=== PATIENT | male | born 1965 | race African-American/Black ===

== ENCOUNTER 2019-02-15 03:39 | Inpatient (IN) | payer OTHER ==
[~2019-02-15] VITALS: Ht 193 cm; Wt 126.8 kg
[2019-02-15 04:05] LABS: BASO % 1 % (0-3); EOS % 0 % (0-3); HEMATOCRIT 42.5 % (39.0-53.0); LYMPH # 0.9 x10^3/uL (1.0-4.8); LYMPH % 24 % (24-48); MEAN CORPUSCULAR HEMOGLOBIN 32 pg (25-35); MEAN CORPUSCULAR HGB CONC 35 g/dL (31-37); MEAN CORPUSCULAR VOLUME 91 fL (79-100); MONO # 0.3 x10^3/uL (0.0-1.1); MONO % 9 % (0-9); NEUT # 2.5 x10^3/uL (1.8-7.7); NEUT % 66 % (31-73); PLATELET COUNT 74 x10^3/uL (140-400); RED BLOOD COUNT 4.65 x10^6/uL (4.30-5.70); RED CELL DISTRIBUTION WIDTH 14.2 % (11.5-14.5); WHITE BLOOD COUNT 3.7 x10^3/uL (4.0-11.0)
[2019-02-15 04:13] LABS: CALCIUM 9.6 mg/dL (8.5-10.1); CREATININE 0.9 mg/dL (0.7-1.3); GFR 88.6; POTASSIUM 3.3 mmol/L (3.5-5.1)
[2019-02-15 04:16] LABS: PROTHROMBIN TIME PATIENT 11.8 SEC (11.7-14.0)
[2019-02-15 04:19] LABS: ALBUMIN 4.1 g/dL (3.4-5.0); TOTAL BILIRUBIN 0.9 mg/dL (0.2-1.0); TOTAL PROTEIN 8.4 g/dL (6.4-8.2)
[2019-02-15] MEDS ORDERED: CONTRAST GIVEN. MC PRN (04:30)
[2019-02-15] MEDS ORDERED: fentaNYL PF VIAL 100 MCG/2 ML VIAL IV ONE (04:30)
[2019-02-15] MEDS ORDERED: IOHEXOL 350 MG/ML 100 ML VIAL. IV ONE (05:00)
--- NOTE | 2019-02-15 05:18 | RAD ---
Examination: CT angiography chest abdomen pelvis without and with IV contrast HISTORY: History of abdominal pain, chest pain COMPARISON: None available TECHNIQUE: Axial CT angiographic images of the chest abdomen pelvis were performed with without and with IV contrast. Coronal and sagittal 3-D MIP reformats are performed. Exposure: One or more of the following individualized dose reduction techniques were utilized for this examination: 1. Automated exposure control 2. Adjustment of the mA and/or kV according to patient size 3. Use of iterative reconstruction technique FINDINGS: The visualized thyroid gland grossly appears unremarkable. The central airways are patent. The caliber of the aorta grossly appears unremarkable. No evidence of aortic dissection identified. Mild aortic atherosclerotic calcifications. The lungs are clear. No evidence of free air identified in the abdomen Decreased attenuation noted in the liver likely hepatic steatosis. The spleen, adrenals grossly appears unremarkable. The gallbladder is mildly distended. The stomach is mildly distended. There is moderate intermediate fat stranding identified about the pancreatic head and second part of the duodenum could be pancreatitis or duodenitis or peptic ulcer disease. There is a 1.2 cm hypodensity identified in the head of the pancreas. The small bowel is nondilated. Feces and gas noted in the colon. The appendix is normal The bilateral kidneys enhance symmetrically. Urinary bladder is mildly distended. Faint hypodensity identified in the L4 vertebral body anteriorly probably focal osseous demineralization and less likely lytic lesion. IMPRESSION: 1. No evidence of aortic dissection 2. Moderate inflammatory fat stranding identified about the pancreatic head and in the second part of the duodenum could be pancreatitis or duodenitis or peptic ulcer disease. 1.2 cm hypodensity identified in the head of the pancreas. Recommend follow-up MRI abdomen with MRCP for further evaluation. 3.Faint hypodensity identified in the L4 vertebral body anteriorly probably focal osseous demineralization and less likely lytic lesion. Follow-up bone scan can be considered. Electronically signed by: Khurram Baker MD (02/15/2019 5:15 AM) [facility]
[2019-02-15 05:26] LABS: BILIRUBIN,URINE NEGATIVE (NEG); CLARITY,URINE CLEAR; COLOR,URINE YELLOW; NITRITE,URINE NEGATIVE (NEG); PROTEIN,URINE NEGATIVE (NEG-TRACE); UROBILINOGEN,URINE 0.2 mg/dL (0.2 mg/dL)
[2019-02-15 05:30] LABS: BACTERIA,URINE 0 /HPF (0-FEW); SQUAMOUS EPITHELIAL CELL,UR OCC /LPF; WBC,URINE OCC /HPF (0-4)
--- NOTE | 2019-02-15 05:34 | PHYS DOC ---
Adult General Chief Complaint Chief Complaint: CHEST PAIN HPI HPI Patient is a 54 year old female presenting with upper abdominal pain and lower chest pain. He says the pain has been migrating from the chest to the abdomen and back to the chest throughout the day today not clearly exertional he has thrown up a couple times he has had increased sinus congestion was coughing try to take some [facility] but threw that up promptly. Pain is deep and sharp and cramping as well. Has never had pain like this before denies any recent trauma Dose of report a history sometime esophageal surgery it sounds like maybe mark fundoplication? awhile back. occasional etoh but not daily or heavy no known hx of gallstones Review of Systems Review of Systems Constitutional: Denies fever or chills [] Eyes: Denies change in visual acuity, redness, or eye pain [] HENT: Denies nasal congestion or sore throat [] Respiratory: Denies cough or shortness of breath [] Cardiovascular: No additional information not addressed in HPI [] GI: Denies abdominal pain, nausea, vomiting, bloody stools or diarrhea [] : Denies dysuria or hematuria [] Musculoskeletal: Denies back pain or joint pain [] Integument: Denies rash or skin lesions [] Neurologic: Denies headache, focal weakness or sensory changes [] Endocrine: Denies polyuria or polydipsia [] All other systems were reviewed and found to be within normal limits, except as documented in this note. Current Medications Current Medications Current Medications Medications (Trade) Dose Ordered Sig/Suzy Start Time Stop Time Status Last Admin Dose Admin Fentanyl Citrate (Fentanyl 2ml Vial) 50 mcg 1X ONCE 02/15/19 04:30 02/15/19 04:31 DC 02/15/19 04:16 50 MCG Info (CONTRAST GIVEN -- Rx MONITORING) 1 each PRN DAILY PRN 02/15/19 04:30 02/17/19 04:29 Iohexol (Omnipaque 350 Mg/ml) 100 ml 1X ONCE 02/15/19 05:00 02/15/19 05:01 DC 02/15/19 04:55 100 ML Allergies Allergies Allergies Coded Allergies Type Severity Reaction Last Updated Verified pollen extracts Allergy Intermediate SEASONAL ALLERGIES 02/15/19 Yes Physical Exam Physical Exam Constitutional: Well developed, well nourished, appears uncomfortable. HENT: Normocephalic, atraumatic, bilateral external ears normal, oropharynx moist, no oral exudates, nose normal. [] Eyes: PERRLA, EOMI, conjunctiva normal, no discharge. [] Neck: Normal range of motion, no tenderness, supple, no stridor. [] Cardiovascular:Heart rate regular rhythm, no murmur [] Lungs & Thorax: Bilateral breath sounds clear to auscultation [] Abdomen: Bowel sounds normal, soft, epigastric without rebound or guarding tenderness, no masses, no pulsatile masses. [] Skin: Warm, dry, no erythema, no rash. [] Back: No tenderness, no CVA tenderness. [] Extremities: No tenderness, no cyanosis, no clubbing, ROM intact, no edema. [] Neurologic: Alert and oriented X 3, normal motor function, normal sensory function, no focal deficits noted. [] Psychologic: Affect normal, judgement normal, mood normal. [] Current Patient Data Vital Signs Vital Signs Date Time Temp Pulse Resp B/P (MAP) Pulse Ox O2 Delivery O2 Flow Rate FiO2 02/15/19 04:16 16 100 Room Air Lab Values Laboratory Tests Test 02/15/19 03:43 White Blood Count 3.7 x10^3/uL (4.0-11.0) L Red Blood Count 4.65 x10^6/uL (4.30-5.70) Hemoglobin 15.0 g/dL (13.0-17.5) Hematocrit 42.5 % (39.0-53.0) Mean Corpuscular Volume 91 fL (79-100) Mean Corpuscular Hemoglobin 32 pg (25-35) Mean Corpuscular Hemoglobin Concent 35 g/dL (31-37) Red Cell Distribution Width 14.2 % (11.5-14.5) Platelet Count 74 x10^3/uL (140-400) L Neutrophils (%) (Auto) 66 % (31-73) Lymphocytes (%) (Auto) 24 % (24-48) Monocytes (%) (Auto) 9 % (0-9) Eosinophils (%) (Auto) 0 % (0-3) Basophils (%) (Auto) 1 % (0-3) Neutrophils # (Auto) 2.5 x10^3/uL (1.8-7.7) Lymphocytes # (Auto) 0.9 x10^3/uL (1.0-4.8) L Monocytes # (Auto) 0.3 x10^3/uL (0.0-1.1) Eosinophils # (Auto) 0.0 x10^3/uL (0.0-0.7) Basophils # (Auto) 0.0 x10^3/uL (0.0-0.2) Prothrombin Time 11.8 SEC (11.7-14.0) Prothrombin Time INR 0.9 (0.8-1.1) Sodium Level 134 mmol/L (136-145) L Potassium Level 3.3 mmol/L (3.5-5.1) L Chloride Level 97 mmol/L (98-107) L Carbon Dioxide Level 24 mmol/L (21-32) Anion Gap 13 (6-14) Blood Urea Nitrogen 9 mg/dL (8-26) Creatinine 0.9 mg/dL (0.7-1.3) Estimated GFR (Cockcroft-Gault) 88.6 BUN/Creatinine Ratio 10 (6-20) Glucose Level 117 mg/dL (70-99) H Calcium Level 9.6 mg/dL (8.5-10.1) Total Bilirubin 0.9 mg/dL (0.2-1.0) Aspartate Amino Transferase (AST) 49 U/L (15-37) H Alanine Aminotransferase (ALT) 41 U/L (16-63) Alkaline Phosphatase 105 U/L (46-116) Troponin I Quantitative < 0.017 ng/mL (0.000-0.055) Total Protein 8.4 g/dL (6.4-8.2) H Albumin 4.1 g/dL (3.4-5.0) Albumin/Globulin Ratio 1.0 (1.0-1.7) Lipase 651 U/L (73-393) H Laboratory Tests 02/15/19 03:43 Laboratory Tests 02/15/19 03:43 EKG EKG []Normal sinus rhythm rate of 85 no acute ischemic changes noted interpreted by me the time of encounter QTc 482 Radiology/Procedures Radiology/Procedures [] Impressions: IMPRESSION: 1. No evidence of aortic dissection 2. Moderate inflammatory fat stranding identified about the pancreatic head and in the second part of the duodenum could be pancreatitis or duodenitis or peptic ulcer disease. 1.2 cm hypodensity identified in the head of the pancreas. Recommend follow-up MRI abdomen with MRCP for further evaluation. 3.Faint hypodensity identified in the L4 vertebral body anteriorly probably focal osseous demineralization and less likely lytic lesion. Follow-up bone scan can be considered. Electronically signed by: Khurram Baker MD (02/15/2019 5:15 AM) [facility] Course & Med Decision Making Course & Med Decision Making Pertinent Labs and Imaging studies reviewed. (See chart for details) []54-year-old male with history of coronary artery disease status post stent placement 2010 prior history of what sounds like probably a Mark fundoplication also hypertension other medical problems Presenting with first episode of pancreatitis. Noted the CT scan I think he needs further imaging and a admission for expedited workup. Admit to Dr. Higuera pain control IV fluids and antiemetics and GI consult. Dragon Disclaimer Dragon Disclaimer This electronic medical record was generated, in whole or in part, using a voice recognition dictation system. Departure Departure Impression: Primary Impression: Pancreatitis Disposition: 09 ADMITTED INPATIENT Admitting Physician: CASSIA Condition: STABLE Referrals: NO PCP (PCP) SEBASTIAN CORADO MD Feb 15, 2019 05:34
[2019-02-15] MEDS ORDERED: ONDANSETRON PF 4 MG/2 ML VIAL. IV PRN ×2 (05:45→09:00)
[2019-02-15] MEDS: IV NORMAL SALINE 1000ML BAG 1,000 ML IV SCH ×2 (06:15→14:47)
[2019-02-15] MEDS: MORPHINE SULFATE 4 MG/ML VIAL. IV PRN ×2 (06:15→09:12)
--- NOTE | 2019-02-15 06:57 | RAD ---
EXAM: CHEST 1 VIEW History: Dyspnea COMPARISON: None available. TECHNIQUE: Single portable radiograph of the chest FINDINGS: The cardiac silhouette is unremarkable. Minimal bibasilar lung atelectasis. The costophrenic sulci are clear and well demarcated. IMPRESSION: Minimal bibasilar lung atelectasis. Electronically signed by: Khurram Baker MD (02/15/2019 6:54 AM) [facility]
--- NOTE | 2019-02-15 07:16 | EKG ---
[facility] [address] [place] [address] Test Date: 2019-02-15 Test Time: 03:42:13 Pat Name: LUZ MARIA SIMS Department: Room: Gender: M [employer] Mechanical [employer]: : 1965 Requested By: SEBASTIAN CORADO Order Number: [id number] Reading MD: Francisco Dooley MD Measurements Intervals [place] Rate: 85 P: 43 NC: 166 QRS: 15 QRSD: 92 T: 14 QT: 400 QTc: 482 Interpretive Statements SINUS RHYTHM NON-SPECIFIC ST/T CHANGES CONSISTENT WITH ANTEROSEPTAL INFARCT Electronically Signed On 02-26-2019 10:01:01 CDT by Francisco Dooley MD
[2019-02-15 08:30] VITALS: BP 141/80
--- NOTE | 2019-02-15 08:48 | NUR ---
Cleared reassessments from ED on [facility].
[2019-02-15] MEDS ORDERED: NICOTINE 21MG PATCH. TD PRN (09:00)
[2019-02-15] MEDS ORDERED: chlordiazePOXIDE HCL 25 MG CAPSULE PO PRN (09:00)
[2019-02-15] MEDS ORDERED: FLU VAX QS 2019-20 (36MOS+)/PF 0.5 ML SYRINGE. VAX IM ONE (09:15)
--- NOTE | 2019-02-15 09:23 | PDOC2 ---
SAMSON SHER 02/15/19 0923: GI CONSULT Reason For Consult: pancreatitis, abnormal CT HPI: HPI: 54 y/o male admitted through ER. Reports a couple days of intermittent diffuse aching abd pain. No similar pain in the past. No precipitating events. No aggravating or alleviating factors. Took azithromycin (from [facility]) for sinus congestion and vomited. No radiation to back. No hematemesis, hematochezia, or melena. No diarrhea or weight loss. Stooled a couple days ago. H/o GERD controlled w/ omeprazole. Labs note lowish WBC (3.7), plt 74, AST 49, lipase 651. CTA shows moderate inflammatory fat stranding about pancreatic head, 1.2cm hypodensity in pancreatic head, hepatic steatosis, mild distention of stomach and GB, and small lymph nodes about pancreatic head. "My esophagus wouldn't close" - had a surgery @ [facility] at age 10, might have had an EGD since but not sure. No previous colonoscopy. No GB, liver, pancreas, or PUD history. I went through his bag of meds with his permission - includes two bottles of ibuprofen 800mg and ASA 81mg. PMH: PMH: CAD w/ stent, HTN, HLD ?esophageal surgery FH: Family History: Cancer (father - unclear kind) Social History: Smoke: <1 pack per day ALCOHOL: other (6 pack during football games) Drugs: None ROS: GEN: Denies fevers, chills, sweats HEENT: Denies blurred vision, sore throat CV: Denies chest pain RESP: Denies shortness of air, cough GI: Per HPI : Denies hematuria, dysuria ENDO: Denies weight changes NEURO: Denies confusion, dizziness MSK: Denies weakness, joint pain/swelling SKIN: Denies jaundice, pruritus Vitals: Vitals: Vital Signs Date Time Temp Pulse Resp B/P (MAP) Pulse Ox O2 Delivery O2 Flow Rate FiO2 02/15/19 09:12 Room Air 02/15/19 08:30 97.8 57 22 141/80 (100) 98 97.8 Labs: Labs: Laboratory Tests Test 02/15/19 03:43 02/15/19 05:19 White Blood Count 3.7 x10^3/uL (4.0-11.0) Red Blood Count 4.65 x10^6/uL (4.30-5.70) Hemoglobin 15.0 g/dL (13.0-17.5) Hematocrit 42.5 % (39.0-53.0) Mean Corpuscular Volume 91 fL (79-100) Mean Corpuscular Hemoglobin 32 pg (25-35) Mean Corpuscular Hemoglobin Concent 35 g/dL (31-37) Red Cell Distribution Width 14.2 % (11.5-14.5) Platelet Count 74 x10^3/uL (140-400) Neutrophils (%) (Auto) 66 % (31-73) Lymphocytes (%) (Auto) 24 % (24-48) Monocytes (%) (Auto) 9 % (0-9) Eosinophils (%) (Auto) 0 % (0-3) Basophils (%) (Auto) 1 % (0-3) Neutrophils # (Auto) 2.5 x10^3/uL (1.8-7.7) Lymphocytes # (Auto) 0.9 x10^3/uL (1.0-4.8) Monocytes # (Auto) 0.3 x10^3/uL (0.0-1.1) Eosinophils # (Auto) 0.0 x10^3/uL (0.0-0.7) Basophils # (Auto) 0.0 x10^3/uL (0.0-0.2) Prothrombin Time 11.8 SEC (11.7-14.0) Prothromb Time International Ratio 0.9 (0.8-1.1) Sodium Level 134 mmol/L (136-145) Potassium Level 3.3 mmol/L (3.5-5.1) Chloride Level 97 mmol/L (98-107) Carbon Dioxide Level 24 mmol/L (21-32) Anion Gap 13 (6-14) Blood Urea Nitrogen 9 mg/dL (8-26) Creatinine 0.9 mg/dL (0.7-1.3) Estimated GFR (Cockcroft-Gault) 88.6 BUN/Creatinine Ratio 10 (6-20) Glucose Level 117 mg/dL (70-99) Calcium Level 9.6 mg/dL (8.5-10.1) Total Bilirubin 0.9 mg/dL (0.2-1.0) Aspartate Amino Transf (AST/SGOT) 49 U/L (15-37) Alanine Aminotransferase (ALT/SGPT) 41 U/L (16-63) Alkaline Phosphatase 105 U/L (46-116) Troponin I Quantitative < 0.017 ng/mL (0.000-0.055) Total Protein 8.4 g/dL (6.4-8.2) Albumin 4.1 g/dL (3.4-5.0) Albumin/Globulin Ratio 1.0 (1.0-1.7) Lipase 651 U/L (73-393) Urine Collection Type Unknown Urine Color Yellow Urine Clarity Clear Urine pH 6.0 Urine Specific [place] >=1.030 Urine Protein Negative mg/dL (NEG-TRACE) Urine Glucose (UA) Negative mg/dL (NEG) Urine Ketones (Stick) Trace mg/dL (NEG) Urine Blood Trace (NEG) Urine Nitrite Negative (NEG) Urine Bilirubin Negative (NEG) Urine Urobilinogen Dipstick 0.2 mg/dL (0.2 mg/dL) Urine Leukocyte Esterase Negative (NEG) Urine RBC 3-5 /HPF (0-2) Urine WBC Occ /HPF (0-4) Urine Squamous Epithelial Cells Occ /LPF Urine Bacteria 0 /HPF (0-FEW) Allergies: Coded Allergies: pollen extracts (Verified Allergy, Intermediate, SEASONAL ALLERGIES, 02/15/19) Medications: Current Medications Medications (Trade) Dose Ordered Sig/Suzy Route PRN Reason Start Time Stop Time Status Last Admin Dose Admin Fentanyl Citrate (Fentanyl 2ml Vial) 50 mcg 1X ONCE IV 02/15/19 04:30 02/15/19 04:31 DC 02/15/19 04:16 Iohexol (Omnipaque 350 Mg/ml) 100 ml 1X ONCE IV 02/15/19 05:00 02/15/19 05:01 DC 02/15/19 04:55 Morphine Sulfate (Morphine Sulfate) 4 mg PRN Q2HR PRN IV SEVERE PAIN 7-10 02/15/19 05:45 02/16/19 05:44 02/15/19 09:12 Sodium Chloride 1,000 ml @ 125 mls/hr Q8H IV 02/15/19 06:00 02/16/19 05:59 02/15/19 06:15 Imaging: Imaging: CXR IMPRESSION: Minimal bibasilar lung atelectasis. CTA C/A/P FINDINGS: The visualized thyroid gland grossly appears unremarkable. The central airways are patent. The caliber of the aorta grossly appears unremarkable. No evidence of aortic dissection identified. Mild aortic atherosclerotic calcifications.The lungs are clear. No evidence of free air identified in the abdomen. Decreased attenuation noted in the liver likely hepatic steatosis. The spleen, adrenals grossly appears unremarkable. The gallbladder is mildly distended. The stomach is mildly distended. There is moderate intermediate fat stranding identified about the pancreatic head and second part of the duodenum could be pancreatitis or duodenitis or peptic ulcer disease. There is a 1.2 cm hypodensity identified in the head of the pancreas. The small bowel is nondilated. Feces and gas noted in the colon. The appendix is normal. The bilateral kidneys enhance symmetrically. Urinary bladder is mildly distended. Faint hypodensity identified in the L4 vertebral body anteriorly probably focal osseous demineralization and less likely lytic lesion. IMPRESSION: 1. No evidence of aortic dissection 2. Moderate inflammatory fat stranding identified about the pancreatic head and in the second part of the duodenum could be pancreatitis or duodenitis or peptic ulcer disease. 1.2 cm hypodensity identified in the head of the pancreas. Recommend follow-up MRI abdomen with MRCP for further evaluation. 3.Faint hypodensity identified in the L4 vertebral body anteriorly probably focal osseous demineralization and less likely lytic lesion. Follow-up bone scan can be considered. Addendum: Multiple small lymph nodes identified about the pancreatic head with the largest measuring 1.6 cm, nonspecific could be reactive or metastasis. PE: GEN: NAD HEENT: Atraumatic, PERRL LUNGS: CTAB HEART: RRR ABD: quiet, soft, diffuse discomfort EXTREMITY: No edema SKIN: No rashes, no jaundice NEURO/PSYCH: A & O 3, drowsy A/P: A/P: Diffuse abdominal aching Leukopenia, thrombocytopenia, elevated AST, elevated lipase Abnormal CTA - moderate inflammatory fat stranding about pancreatic head, 1.2cm hypodensity in pancreatic head, hepatic steatosis, mild distention of stomach and GB, and small lymph nodes about pancreatic head GERD - on PPI Vomiting - once after azithromycin CRC screen - none Hepatic steatosis NSAID use CAD on ASA -- Reviewed w/ Dr. Garcia - EGD this morning, will also check CA19-9. ?drinks more than he says - check tox screen Continue PPI. Outpt MRCP and colonoscopy. PB GARCIA MD 02/15/19 1031: SAMSON SHER Feb 15, 2019 09:23 PB GARCIA MD Feb 15, 2019 10:31
[2019-02-15] MEDS ORDERED: MELA3TAB56 PO (09:27)
[2019-02-15] MEDS ORDERED: IBUP-1060 PO (09:27)
[2019-02-15] MEDS ORDERED: MONT10TA49 PO (09:27)
[2019-02-15] MEDS ORDERED: DEXT15DR5 EACHEYE (09:27)
[2019-02-15] MEDS ORDERED: ATOR40TA59 PO (09:27)
[2019-02-15] MEDS ORDERED: CHOL10003 PO (09:27)
[2019-02-15] MEDS ORDERED: AMLO10TA8 PO (09:27)
[2019-02-15] MEDS ORDERED: [UNRECOGNIZED DRUG - CODE] PO (09:27)
[2019-02-15] MEDS ORDERED: ASPI-630 PO (09:27)
[2019-02-15] MEDS ORDERED: GUAI12003 PO (09:27)
[2019-02-15] MEDS ORDERED: METO-239 PO (09:27)
[2019-02-15] MEDS ORDERED: AMOX1TAB10 PO (09:27)
[2019-02-15] MEDS ORDERED: CETI10TA16 PO (09:27)
[2019-02-15] MEDS ORDERED: TRIA1TAB5 PO (09:27)
[2019-02-15] MEDS ORDERED: OMEP20CA10 PO (09:27)
[2019-02-15] MEDS ORDERED: TRAM50TA PO (09:30)
[2019-02-15] MEDS: IV RINGERS,LACTATED 1000ML 1,000 ML IV SCH ×2 (10:23→20:30)
[2019-02-15] MEDS ORDERED: LIDOCAINE 2% PF 5 ML VIAL. ONE (10:28)
[2019-02-15] MEDS ORDERED: PROPOFOL 20 ML IV ONE (10:28)
--- NOTE | 2019-02-15 10:43 | PDOC4 ---
Operative Note Operative Note EGD Meds propofol per anesthesia Pre-op dx Abd pain/abnl Ct scan Post-op dx non-erosive gastritis Plan advance diet PPI therapy for non-ulcer dyspepsia O/P MRCP and EUS with KCVA to further assess pending Ca 19-9 levels PB PHILLIP MD Feb 15, 2019 10:43
--- NOTE | 2019-02-15 13:04 | PDOC1 ---
History and Physical Date of Admission Date of Admission DATE: 02/15/19 TIME: 12:59 Identification/Chief Complaint Chief Complaint abd pain Source Source: Caregiver, Chart review, Patient History of Present Illness History of Present Illness 54yo AA male, alcoholic, came in bec of epig pain and had a lipase 600s with abN CT, HE just had EGD, (results pending) GI note noted, plan: Differential includs: PUD, pancreatic malignancy, and/or IBD. Await Ca 19-9 level and EGD results. If unrevealing, MRCP and EUS to follow. HE still has some epig pain, alcoholic, no hx prev epsiodes in past TAkes meds, but unknown names Past Medical History Cardiovascular: HTN Past Surgical History Past Surgical History: No pertinent history Family History Family History: Hypertension Social History Smoke: No ALCOHOL: heavy Drugs: None Current Problem List Problem List Problems Medical Problems: (1) Pancreatitis Status: Acute Current Medications Current Medications Current Medications Fentanyl Citrate (Fentanyl 2ml Vial) 50 mcg 1X ONCE IV Last administered on 02/15/19at 04:16; Start 02/15/19 at 04:30; Stop 02/15/19 at 04:31; Status DC Iohexol (Omnipaque 350 Mg/ml) 100 ml 1X ONCE IV Last administered on 02/15/19at 04:55; Start 02/15/19 at 05:00; Stop 02/15/19 at 05:01; Status DC Info (CONTRAST GIVEN -- Rx MONITORING) 1 each PRN DAILY PRN MC SEE COMMENTS; Start 02/15/19 at 04:30; Stop 02/17/19 at 04:29 Ondansetron HCl (Zofran) 4 mg PRN Q8HRS PRN IV NAUSEA/VOMITING 1ST CHOICE; Start 02/15/19 at 05:45; Stop 02/15/19 at 09:02; Status DC Morphine Sulfate (Morphine Sulfate) 4 mg PRN Q2HR PRN IV SEVERE PAIN 7-10 Last administered on 02/15/19at 09:12; Start 02/15/19 at 05:45; Stop 02/16/19 at 05:44 Sodium Chloride 1,000 ml @ 125 mls/hr Q8H IV Last administered on 02/15/19at 06:15; Start 02/15/19 at 06:00; Stop 02/16/19 at 05:59 Ondansetron HCl (Zofran) 4 mg PRN Q6HRS PRN IV NAUSEA/VOMITING 1ST CHOICE; Start 02/15/19 at 09:00 Oxycodone/ Acetaminophen (Percocet 5/325) 1 tab PRN Q4HRS PRN PO PAIN; Start 02/15/19 at 09:00 Chlordiazepoxide (Librium) 25 mg PRN Q6HRS PRN PO ANXIETY / AGITATION; Start 02/15/19 at 09:00 Nicotine (Nicoderm Cq 21mg) 1 patch PRN DAILY PRN TD SMOKING CESSATION; Start 02/15/19 at 09:00 Influenza Virus Vaccine Quadrival (Afluria Quad 2019-20 (3yr Up) Syringe) 0.5 ml ONCE ONCE VAX IM ; Start 02/15/19 at 09:15; Stop 02/15/19 at 09:16; Status DC Pantoprazole Sodium (PROTONIX VIAL for IV PUSH) 40 mg DAILYAC IVP ; Start 02/15/19 at 11:30 Ringer's Solution 1,000 ml @ 100 mls/hr Q10H IV Last administered on 02/15/19at 10:23; Start 02/15/19 at 10:30 Propofol 20 ml @ As Directed STK-MED ONCE IV ; Start 02/15/19 at 10:28; Stop 02/15/19 at 10:29; Status DC Lidocaine HCl (Lidocaine Pf 2% Vial) 5 ml STK-MED ONCE .ROUTE ; Start 02/15/19 at 10:28; Stop 02/15/19 at 10:29; Status DC Active Scripts Active Reported Tramadol Hcl 50 Mg Tablet 50 Mg PO PRN Q8HRS PRN Sinus PE Decongestant (Phenylephrine HCl) 10 Mg Tablet 10 Mg PO PRN TID PRN Artificial Tears Eye Drops (Dextran 70/Hypromellose) 15 Ml Drops 1 Drop EACHEYE QID Atorvastatin Calcium 40 Mg Tablet 1 Tab PO QHS Montelukast Sodium Tablet (Montelukast Sodium) 10 Mg Tablet 10 Mg PO HS Ibuprofen 800 Mg Tablet 800 Mg PO PRN BID PRN Amlodipine Besylate 10 Mg Tablet 10 Mg PO DAILY Metoprolol Succinate ( Xl ) (Metoprolol Succinate) 25 Mg Tab.er.24h 1 Tab PO DAILY Mucinex (Guaifenesin) 1,200 Mg Tbmp.12hr 400 Mg PO TID Melatonin 3 Mg Tablet 1 Tab PO PRN QHS PRN Vitamin D3 (Cholecalciferol (Vitamin D3)) 1,000 Unit Tablet 3 Tab PO DAILY Amox Tr-K Clv 500-125 Mg Tab (Amoxicillin/Potassium Clav) 1 Each Tablet 1 Tab PO BID Aspirin 81 Mg Tab.chew 1 Tab PO DAILY Cetirizine Hcl 10 Mg Tablet 1 Tab PO HS Triamterene-Hctz 75-50 Mg Tab (Triamterene/Hydrochlorothiazid) 1 Each Tablet 1 Tab PO DAILY Omeprazole 20 Mg Capsule.dr 1 Cap PO DAILY Allergies Allergies: Coded Allergies: pollen extracts (Verified Allergy, Intermediate, SEASONAL ALLERGIES, 02/15/19) ROS Review of System epig pain, nausea, no emesis, no fevers, no change in BM Physical Exam General: No acute distress HEENT: PERRLA Lungs: Clear to auscultation, Normal air movement Heart: S1S2, RRR, no thrills, no rubs Cardiovascular: S1, S2 Abdomen: Normal bowel sounds, Soft, Other (tenderness epig area) Rectal Exam: not examined PELVIC: Nml ext genitalia Extremities: No clubbing, No cyanosis, No edema, Normal pulses, No tenderness/swelling Skin: No rashes, No breakdown, No significant lesion Neuro: Normal gait, Normal speech, Strength at 5/5 X4 ext, Normal tone, Sensation intact, Cranial nerves 3-12 NL, Reflexes 2+ Psych/Mental Status: Mental status NL, Mood NL Vitals Vitals Vital Signs Date Time Temp Pulse Resp B/P (MAP) Pulse Ox O2 Delivery O2 Flow Rate FiO2 02/15/19 11:15 97.2 100 20 158/91 100 Room Air 97.2 02/15/19 10:45 2 Labs Labs Laboratory Tests Test 02/15/19 03:43 02/15/19 05:19 White Blood Count 3.7 x10^3/uL (4.0-11.0) Red Blood Count 4.65 x10^6/uL (4.30-5.70) Hemoglobin 15.0 g/dL (13.0-17.5) Hematocrit 42.5 % (39.0-53.0) Mean Corpuscular Volume 91 fL (79-100) Mean Corpuscular Hemoglobin 32 pg (25-35) Mean Corpuscular Hemoglobin Concent 35 g/dL (31-37) Red Cell Distribution Width 14.2 % (11.5-14.5) Platelet Count 74 x10^3/uL (140-400) Neutrophils (%) (Auto) 66 % (31-73) Lymphocytes (%) (Auto) 24 % (24-48) Monocytes (%) (Auto) 9 % (0-9) Eosinophils (%) (Auto) 0 % (0-3) Basophils (%) (Auto) 1 % (0-3) Neutrophils # (Auto) 2.5 x10^3/uL (1.8-7.7) Lymphocytes # (Auto) 0.9 x10^3/uL (1.0-4.8) Monocytes # (Auto) 0.3 x10^3/uL (0.0-1.1) Eosinophils # (Auto) 0.0 x10^3/uL (0.0-0.7) Basophils # (Auto) 0.0 x10^3/uL (0.0-0.2) Prothrombin Time 11.8 SEC (11.7-14.0) Prothromb Time International Ratio 0.9 (0.8-1.1) Sodium Level 134 mmol/L (136-145) Potassium Level 3.3 mmol/L (3.5-5.1) Chloride Level 97 mmol/L (98-107) Carbon Dioxide Level 24 mmol/L (21-32) Anion Gap 13 (6-14) Blood Urea Nitrogen 9 mg/dL (8-26) Creatinine 0.9 mg/dL (0.7-1.3) Estimated GFR (Cockcroft-Gault) 88.6 BUN/Creatinine Ratio 10 (6-20) Glucose Level 117 mg/dL (70-99) Calcium Level 9.6 mg/dL (8.5-10.1) Total Bilirubin 0.9 mg/dL (0.2-1.0) Aspartate Amino Transf (AST/SGOT) 49 U/L (15-37) Alanine Aminotransferase (ALT/SGPT) 41 U/L (16-63) Alkaline Phosphatase 105 U/L (46-116) Troponin I Quantitative < 0.017 ng/mL (0.000-0.055) Total Protein 8.4 g/dL (6.4-8.2) Albumin 4.1 g/dL (3.4-5.0) Albumin/Globulin Ratio 1.0 (1.0-1.7) Lipase 651 U/L (73-393) Urine Collection Type Unknown Urine Color Yellow Urine Clarity Clear Urine pH 6.0 Urine Specific Dalton >=1.030 Urine Protein Negative mg/dL (NEG-TRACE) Urine Glucose (UA) Negative mg/dL (NEG) Urine Ketones (Stick) Trace mg/dL (NEG) Urine Blood Trace (NEG) Urine Nitrite Negative (NEG) Urine Bilirubin Negative (NEG) Urine Urobilinogen Dipstick 0.2 mg/dL (0.2 mg/dL) Urine Leukocyte Esterase Negative (NEG) Urine RBC 3-5 /HPF (0-2) Urine WBC Occ /HPF (0-4) Urine Squamous Epithelial Cells Occ /LPF Urine Bacteria 0 /HPF (0-FEW) Laboratory Tests Test 02/15/19 03:43 02/15/19 05:19 White Blood Count 3.7 x10^3/uL (4.0-11.0) Red Blood Count 4.65 x10^6/uL (4.30-5.70) Hemoglobin 15.0 g/dL (13.0-17.5) Hematocrit 42.5 % (39.0-53.0) Mean Corpuscular Volume 91 fL (79-100) Mean Corpuscular Hemoglobin 32 pg (25-35) Mean Corpuscular Hemoglobin Concent 35 g/dL (31-37) Red Cell Distribution Width 14.2 % (11.5-14.5) Platelet Count 74 x10^3/uL (140-400) Neutrophils (%) (Auto) 66 % (31-73) Lymphocytes (%) (Auto) 24 % (24-48) Monocytes (%) (Auto) 9 % (0-9) Eosinophils (%) (Auto) 0 % (0-3) Basophils (%) (Auto) 1 % (0-3) Neutrophils # (Auto) 2.5 x10^3/uL (1.8-7.7) Lymphocytes # (Auto) 0.9 x10^3/uL (1.0-4.8) Monocytes # (Auto) 0.3 x10^3/uL (0.0-1.1) Eosinophils # (Auto) 0.0 x10^3/uL (0.0-0.7) Basophils # (Auto) 0.0 x10^3/uL (0.0-0.2) Prothrombin Time 11.8 SEC (11.7-14.0) Prothromb Time International Ratio 0.9 (0.8-1.1) Sodium Level 134 mmol/L (136-145) Potassium Level 3.3 mmol/L (3.5-5.1) Chloride Level 97 mmol/L (98-107) Carbon Dioxide Level 24 mmol/L (21-32) Anion Gap 13 (6-14) Blood Urea Nitrogen 9 mg/dL (8-26) Creatinine 0.9 mg/dL (0.7-1.3) Estimated GFR (Cockcroft-Gault) 88.6 BUN/Creatinine Ratio 10 (6-20) Glucose Level 117 mg/dL (70-99) Calcium Level 9.6 mg/dL (8.5-10.1) Total Bilirubin 0.9 mg/dL (0.2-1.0) Aspartate Amino Transf (AST/SGOT) 49 U/L (15-37) Alanine Aminotransferase (ALT/SGPT) 41 U/L (16-63) Alkaline Phosphatase 105 U/L (46-116) Troponin I Quantitative < 0.017 ng/mL (0.000-0.055) Total Protein 8.4 g/dL (6.4-8.2) Albumin 4.1 g/dL (3.4-5.0) Albumin/Globulin Ratio 1.0 (1.0-1.7) Lipase 651 U/L (73-393) Urine Collection Type Unknown Urine Color Yellow Urine Clarity Clear Urine pH 6.0 Urine Specific Dalton >=1.030 Urine Protein Negative mg/dL (NEG-TRACE) Urine Glucose (UA) Negative mg/dL (NEG) Urine Ketones (Stick) Trace mg/dL (NEG) Urine Blood Trace (NEG) Urine Nitrite Negative (NEG) Urine Bilirubin Negative (NEG) Urine Urobilinogen Dipstick 0.2 mg/dL (0.2 mg/dL) Urine Leukocyte Esterase Negative (NEG) Urine RBC 3-5 /HPF (0-2) Urine WBC Occ /HPF (0-4) Urine Squamous Epithelial Cells Occ /LPF Urine Bacteria 0 /HPF (0-FEW) VTE Prophylaxis Ordered VTE Prophylaxis Devices: Yes VTE Pharmacological Prophylaxi: Yes Assessment/Plan Assessment/Plan epig pain ALcoholic panc Differential includs: PUD, pancreatic malignancy, and/or IBD. PLAN: NPO for now, IVF 125cc PPI IV\med surg floor, 2 mn Await Ca 19-9 level and EGD results. If unrevealing, MRCP and EUS to follow. ciwa , LIBRIUM ETC DW BETH Murphy MD Feb 15, 2019 13:04
[2019-02-15] MEDS ORDERED: traMADol 50 MG TABLET PO PRN (13:15)
[2019-02-15] MEDS ORDERED: NON FORMULARY ITEM (Melatonin 1 TAB) PO PRN (13:15)
--- NOTE | 2019-02-15 14:05 | NUR ---
SS following for discharge planning. SS reviewed pt chart. Pt is from home and is currently on room air. No discharge needs noted at this time. SS will continue to follow for discharge planning.
[2019-02-15] MEDS: CHOLECALCIFEROL (VITAMIN D3) 1,000 UNIT TABLET PO SCH (14:42)
[2019-02-15] MEDS: oxyCODONE/APAP 5/325 1 TAB TABLET PO PRN ×2 (14:43→22:35)
[2019-02-15] MEDS: PANTOPRAZOLE IV PUSH 40 MG VIAL. IVP SCH (14:43)
[2019-02-15] MEDS: amLODIPine BESYLATE 10 MG TABLET PO SCH (14:43)
[2019-02-15] MEDS: METOPROLOL SUCC 24HR ER 25 MG TAB.ER.24H. PO SCH (14:43)
[2019-02-15] MEDS: TRIAMTERENE/HCTZ 37.5/25MG TABLET. PO SCH (14:43)
[2019-02-15 15:00] VITALS: BP 134/70
[2019-02-15] MEDS: POLYVINYL ALCOHOL 1.4% OPHTH SOLUTION 15ML BOTTLE. OU SCH ×2 (17:00→21:00)
[2019-02-15] MEDS: POTASSIUM CL 20MEQ D5-0.45NACL 1,000 ML IV SCH (18:09)
[2019-02-15 19:00] VITALS: BP 133/75
[2019-02-15 20:07] LABS: BARBITURATES NEG (NEG); BENZODIAZEPINES NEG (NEG); CANNABINOIDS NEG (NEG); COCAINE NEG (NEG); METHADONE NEG (NEG); OPIATES POS (NEG); PHENCYCLIDINE NEG (NEG)
[2019-02-15 20:09] LABS: AMPHETAMINE/METHAMPHETAMINE NEG (NEG)
[2019-02-15] MEDS ORDERED: ATORVASTATIN CALCIUM 40 MG TABLET. PO SCH (21:00)
[2019-02-15 23:00] VITALS: BP 136/77
[2019-02-16 03:00] VITALS: BP 122/81
[2019-02-16] MEDS: POTASSIUM CL 20MEQ D5-0.45NACL 1,000 ML IV SCH (04:36)
[2019-02-16] MEDS: oxyCODONE/APAP 5/325 1 TAB TABLET PO PRN (05:29)
[2019-02-16 05:56] LABS: CALCIUM 9.7 mg/dL (8.5-10.1); CREATININE 0.8 mg/dL (0.7-1.3); GFR 122.8; POTASSIUM 3.4 mmol/L (3.5-5.1)
[2019-02-16] MEDS: IV RINGERS,LACTATED 1000ML 1,000 ML IV SCH (06:30)
[2019-02-16 07:00] VITALS: BP 113/76
[2019-02-16] MEDS ORDERED: POLYVINYL ALCOHOL 1.4% OPHTH SOLUTION 15ML BOTTLE. OU PRN (07:00)
[2019-02-16] MEDS: CHOLECALCIFEROL (VITAMIN D3) 1,000 UNIT TABLET PO SCH (09:07)
[2019-02-16 09:08] VITALS: BP 113/76
[2019-02-16] MEDS: PANTOPRAZOLE IV PUSH 40 MG VIAL. IVP SCH (09:08)
[2019-02-16] MEDS: TRIAMTERENE/HCTZ 37.5/25MG TABLET. PO SCH (09:08)
[2019-02-16] MEDS: amLODIPine BESYLATE 10 MG TABLET PO SCH (09:08)
[2019-02-16] MEDS: METOPROLOL SUCC 24HR ER 25 MG TAB.ER.24H. PO SCH (09:08)
[2019-02-16] MEDS ORDERED: TRAM50TA PO (09:36)
--- NOTE | 2019-02-16 09:38 | PDOC3 ---
Discharge Summary Visit Information Date of Admission: Feb 15, 2019 Date of Discharge: Feb 16, 2019 Admitting Diagnosis Comment: NON Erosive gastritis status post EGD 02/15 Alcoholism Pancreatitis-lipase 600 on admission normalized on discharge Final Diagnosis Problems Medical Problems: (1) Pancreatitis Status: Acute Brief Hospital Course Allergies Allergies Coded Allergies Type Severity Reaction Last Updated Verified pollen extracts Allergy Intermediate SEASONAL ALLERGIES 02/15/19 Yes Vital Signs Vital Signs Date Time Temp Pulse Resp B/P (MAP) Pulse Ox O2 Delivery O2 Flow Rate FiO2 02/16/19 09:08 71 113/76 02/16/19 08:00 Room Air 02/16/19 07:00 98.4 14 100 98.4 02/15/19 10:45 2 Lab Results Laboratory Tests Test 02/15/19 03:43 02/15/19 05:19 02/15/19 18:45 02/16/19 04:25 White Blood Count 3.7 x10^3/uL (4.0-11.0) Red Blood Count 4.65 x10^6/uL (4.30-5.70) Hemoglobin 15.0 g/dL (13.0-17.5) Hematocrit 42.5 % (39.0-53.0) Mean Corpuscular Volume 91 fL (79-100) Mean Corpuscular Hemoglobin 32 pg (25-35) Mean Corpuscular Hemoglobin Concent 35 g/dL (31-37) Red Cell Distribution Width 14.2 % (11.5-14.5) Platelet Count 74 x10^3/uL (140-400) Neutrophils (%) (Auto) 66 % (31-73) Lymphocytes (%) (Auto) 24 % (24-48) Monocytes (%) (Auto) 9 % (0-9) Eosinophils (%) (Auto) 0 % (0-3) Basophils (%) (Auto) 1 % (0-3) Neutrophils # (Auto) 2.5 x10^3/uL (1.8-7.7) Lymphocytes # (Auto) 0.9 x10^3/uL (1.0-4.8) Monocytes # (Auto) 0.3 x10^3/uL (0.0-1.1) Eosinophils # (Auto) 0.0 x10^3/uL (0.0-0.7) Basophils # (Auto) 0.0 x10^3/uL (0.0-0.2) Prothrombin Time 11.8 SEC (11.7-14.0) Prothromb Time International Ratio 0.9 (0.8-1.1) Sodium Level 134 mmol/L (136-145) 134 mmol/L (136-145) Potassium Level 3.3 mmol/L (3.5-5.1) 3.4 mmol/L (3.5-5.1) Chloride Level 97 mmol/L (98-107) 98 mmol/L (98-107) Carbon Dioxide Level 24 mmol/L (21-32) 26 mmol/L (21-32) Anion Gap 13 (6-14) 10 (6-14) Blood Urea Nitrogen 9 mg/dL (8-26) 5 mg/dL (8-26) Creatinine 0.9 mg/dL (0.7-1.3) 0.8 mg/dL (0.7-1.3) Estimated GFR (Cockcroft-Gault) 88.6 122.8 BUN/Creatinine Ratio 10 (6-20) Glucose Level 117 mg/dL (70-99) 105 mg/dL (70-99) Calcium Level 9.6 mg/dL (8.5-10.1) 9.7 mg/dL (8.5-10.1) Total Bilirubin 0.9 mg/dL (0.2-1.0) Aspartate Amino Transf (AST/SGOT) 49 U/L (15-37) Alanine Aminotransferase (ALT/SGPT) 41 U/L (16-63) Alkaline Phosphatase 105 U/L (46-116) Troponin I Quantitative < 0.017 ng/mL (0.000-0.055) Total Protein 8.4 g/dL (6.4-8.2) Albumin 4.1 g/dL (3.4-5.0) Albumin/Globulin Ratio 1.0 (1.0-1.7) Lipase 651 U/L (73-393) 317 U/L (73-393) Urine Collection Type Unknown Urine Color Yellow Urine Clarity Clear Urine pH 6.0 Urine Specific [place] >=1.030 Urine Protein Negative mg/dL (NEG-TRACE) Urine Glucose (UA) Negative mg/dL (NEG) Urine Ketones (Stick) Trace mg/dL (NEG) Urine Blood Trace (NEG) Urine Nitrite Negative (NEG) Urine Bilirubin Negative (NEG) Urine Urobilinogen Dipstick 0.2 mg/dL (0.2 mg/dL) Urine Leukocyte Esterase Negative (NEG) Urine RBC 3-5 /HPF (0-2) Urine WBC Occ /HPF (0-4) Urine Squamous Epithelial Cells Occ /LPF Urine Bacteria 0 /HPF (0-FEW) Urine Opiates Screen Pos (NEG) Urine Methadone Screen Neg (NEG) Urine Barbiturates Neg (NEG) Urine Phencyclidine Screen Neg (NEG) Urine Amphetamine/Methamphetamine Neg (NEG) Urine Benzodiazepines Screen Neg (NEG) Urine Cocaine Screen Neg (NEG) Urine Cannabinoids Screen Neg (NEG) Urine Ethyl Alcohol Neg (NEG) Laboratory Tests Test 02/15/19 18:45 02/16/19 04:25 Urine Opiates Screen Pos (NEG) Urine Methadone Screen Neg (NEG) Urine Barbiturates Neg (NEG) Urine Phencyclidine Screen Neg (NEG) Urine Amphetamine/Methamphetamine Neg (NEG) Urine Benzodiazepines Screen Neg (NEG) Urine Cocaine Screen Neg (NEG) Urine Cannabinoids Screen Neg (NEG) Urine Ethyl Alcohol Neg (NEG) Sodium Level 134 mmol/L (136-145) Potassium Level 3.4 mmol/L (3.5-5.1) Chloride Level 98 mmol/L (98-107) Carbon Dioxide Level 26 mmol/L (21-32) Anion Gap 10 (6-14) Blood Urea Nitrogen 5 mg/dL (8-26) Creatinine 0.8 mg/dL (0.7-1.3) Estimated GFR (Cockcroft-Gault) 122.8 Glucose Level 105 mg/dL (70-99) Calcium Level 9.7 mg/dL (8.5-10.1) Lipase 317 U/L (73-393) Brief Hospital Course Mr. Ordonez is a 54 old AA male who came today for her first episode of pancreatitis with lipase 600 and some epigastric pain. EGD done showed nonerosive gastritis, PPI advised by GI and advance diet as tolerated. Next day lipase down to normal, patient wants to go home. I have written Rx Consults performed GI etoh levesl < 10 Procedures performed EGD 02/15/19 DC time less than 30 minutes Discharge Information Condition at Discharge: Improved Disposition/Orders: D/C to Home Scheduled Amlodipine Besylate (Amlodipine Besylate) 10 Mg Tablet, 10 MG PO DAILY for htn, (Reported) Entered as Reported by: GOLDEN RESTREPO on 02/15/19926 Last Action: Continued on 02/15/191305 by [address] Amoxicillin/Potassium Clav (Amox Tr-K Clv 500-125 Mg Tab) 1 Each Tablet, 1 TAB PO BID for sinus infection , #14 (Reported) Entered as Reported by: GOLDEN RESTREPO on 02/15/19926 Last Action: HELD on 02/15/[address] Aspirin (Aspirin) 81 Mg Tab.chew, 1 TAB PO DAILY for med list , #30 Ref 3 (Reported) Entered as Reported by: GOLDEN RESTREPO on 02/15/19926 Last Action: HELD on 02/15/[address] Atorvastatin Calcium (Atorvastatin Calcium) 40 Mg Tablet, 1 TAB PO QHS for hld, #30 Ref 5 (Reported) Entered as Reported by: GOLDEN RESTREPO on 02/15/19926 Last Action: Continued on 02/15/[address] Cetirizine Hcl (Cetirizine Hcl) 10 Mg Tablet, 1 TAB PO HS for allergy, #30 Ref 5 (Reported) Entered as Reported by: GOLDEN RESTREPO on 02/15/19926 Last Action: Reviewed on 02/15/[address] Cholecalciferol (Vitamin D3) (Vitamin D3) 1,000 Unit Tablet, 3 TAB PO DAILY for med list, #30 Ref 5 (Reported) Entered as Reported by: GOLDEN RESTREPO on 02/15/19926 Last Action: Continued on 02/15/[address] Dextran 70/Hypromellose (Artificial Tears Eye Drops) 15 Ml Drops, 1 DROP EACHEYE QID for dry eyes, #15 Ref 5 (Reported) Entered as Reported by: GOLDEN RESTREPO on 02/15/19926 Last Action: Converted on 02/15/[address] Guaifenesin (Mucinex) 1,200 Mg Tbmp.12hr, 400 MG PO TID for allergies, (Reported) Entered as Reported by: GOLDEN RESTREPO on 02/15/19926 Last Action: Converted on 02/15/[address] Metoprolol Succinate (Metoprolol Succinate ( Xl )) 25 Mg Tab.er.24h, 1 TAB PO DAILY for htn, #30 Ref 5 (Reported) Entered as Reported by: GOLDEN RESTREPO on 02/15/19926 Last Action: Continued on 02/15/[address] Montelukast Sodium (Montelukast Sodium Tablet ) 10 Mg Tablet, 10 MG PO HS for FOR ASTHMA, Ref 0 (Reported) Entered as Reported by: GOLDEN RESTREPO on 02/15/19926 Last Action: HELD on 02/15/[address] Omeprazole (Omeprazole) 20 Mg Capsule.dr, 1 CAP PO DAILY for gerd, #30 Ref 5 (Reported) Entered as Reported by: GOLDEN RESTREPO on 02/15/19926 Last Action: HELD on 02/15/[address] Triamterene/Hydrochlorothiazid (Triamterene-Hctz 75-50 Mg Tab) 1 Each Tablet, 1 TAB PO DAILY for htn, #30 Ref 5 (Reported) Entered as Reported by: GOLDEN RESTREPO on 02/15/19926 Last Action: Converted on 02/15/[address] Scheduled PRN Ibuprofen (Ibuprofen) 800 Mg Tablet, 800 MG PO PRN BID PRN for INFLAMMATION, (Reported) Entered as Reported by: GOLDEN RESTREPO on 02/15/19926 Last Action: HELD on 02/15/[address] Melatonin (Melatonin) 3 Mg Tablet, 1 TAB PO PRN QHS PRN for INSOMNIA, #30 Ref 2 (Reported) Entered as Reported by: GOLDEN RESTREPO on 02/15/19926 Last Action: Converted on 02/15/[address] Phenylephrine HCl (Sinus PE Decongestant) 10 Mg Tablet, 10 MG PO PRN TID PRN for ALLERGIES, (Reported) Entered as Reported by: GOLDEN RESTREPO on 02/15/19926 Last Action: Reviewed on 02/15/[address] Tramadol Hcl (Tramadol Hcl) 50 Mg Tablet, 50 MG PO PRN Q8HRS PRN for PAIN, #15 Ref 0 Prescribed by: BETH LANE on 02/16/[address] MD Feb 16, 2019 09:38
--- NOTE | 2019-02-16 10:56 | NUR ---
Discharge Note: LUISA SISM REMSEN Discharge instructions and discharge home medications reviewed with Patient and a copy given. All questions have been answered and understanding verbalized. Discontinued IV. VSS. Patient discharged home with self care. Pt ambulated to main entrance with [employer]ILDING [employer]MENT [employer] and was secured in vehicle with significant other.
== END 2019-02-16 10:55 | disposition home or self-care (01) | DRG 391 ==
LOC: ER 03:39 → 4 NORTH 05:30
PROVIDERS: ADMIT Family Medicine; ATTEND Family Medicine
PROC: 0DJ08ZZ Inspection of Upper Intestinal Tract, Via Natural or Artificial Opening Endoscopic (ICD-10-PCS; principal; 2019-02-15 11:30)
DX: K29.70 Gastritis, unspecified, without bleeding (principal); K85.20 Alcohol induced acute pancreatitis without necrosis or infection; E78.5 Hyperlipidemia, unspecified; F17.210 Nicotine dependence, cigarettes, uncomplicated; I10 Essential (primary) hypertension; I25.10 Atherosclerotic heart disease of native coronary artery without angina pectoris; J45.909 Unspecified asthma, uncomplicated; K21.9 Gastro-esophageal reflux disease without esophagitis; K76.0 Fatty (change of) liver, not elsewhere classified; Z79.82 Long term (current) use of aspirin; Z80.9 Family history of malignant neoplasm, unspecified; Z82.49 Family history of ischemic heart disease and other diseases of the circulatory system; Z95.5 Presence of coronary angioplasty implant and graft
CPT/HCPCS: 36415; 43235; 71045; 71275; 74174; 80048; 80053; 80307; 81001; 83690; 84484; 85025; 85610; 86301; 90471; 90686; 93005; C9113; J2001; J2270; J2704; J3010; J7030; J7120; Q9967; 99285-25; G0378

== ENCOUNTER 2019-03-25 16:27 | Emergency (ER) | payer OTHER ==
[~2019-03-25] VITALS: Ht 180.3 cm; Wt 90.7 kg
[~2019-03-25 16:27] MED LIST: AMLO10TA8 PO; AMOX1TAB10 PO; ASPI-630 PO; ATOR40TA59 PO; CETI10TA16 PO; CHOL10003 PO; DEXT15DR5 EACHEYE; GUAI12003 PO; IBUP-1060 PO; MELA3TAB56 PO; METO-239 PO; MONT10TA49 PO; OMEP20CA10 PO; TRAM50TA PO; TRIA1TAB5 PO; [UNRECOGNIZED DRUG - CODE] PO
[2019-03-25 16:48] VITALS: BP 148/94
[2019-03-25] MEDS ORDERED: DEXAMETHASONE 4 MG TABLET PO STA (17:35)
--- NOTE | 2019-03-25 17:37 | PHYS DOC ---
Past Medical History Past Medical History: Hypertension, VT Past Surgical History: Other Additional Past Surgical Histo: CARDIAC STENTS, ESOPHAGUS SURGERY Alcohol Use: Occasionally Drug Use: None Adult General Chief Complaint Chief Complaint: Congestion HPI HPI Patient is a 54 year old male that presents with congestion, runny nose, sore throat this been ongoing for 4 days. He states that it hurts to breathe. Denies any fevers. Review of Systems Review of Systems Constitutional: Denies fever or chills [] Eyes: Denies change in visual acuity, redness, or eye pain [] HENT: Reports nasal congestion Respiratory: Denies cough Cardiovascular: No additional information not addressed in HPI [] GI: Denies abdominal pain, nausea, vomiting, bloody stools or diarrhea [] : Denies dysuria or hematuria [] Musculoskeletal: Denies back pain or joint pain [] Integument: Denies rash or skin lesions [] Neurologic: Denies headache, focal weakness or sensory changes [] Endocrine: Denies polyuria or polydipsia [] Complete systems were reviewed and found to be within normal limits, except as documented in this note. Allergies Allergies Allergies Coded Allergies Type Severity Reaction Last Updated Verified pollen extracts Allergy Intermediate SEASONAL ALLERGIES 02/15/19 Yes Physical Exam Physical Exam Constitutional: Well developed, well nourished, no acute distress, non-toxic appearance. [] HENT: Normocephalic, atraumatic, bilateral external ears normal, oropharynx moist, no oral exudates, nose normal. [] Eyes: PERRLA, EOMI, conjunctiva normal, no discharge. [] Neck: Normal range of motion, no tenderness, supple, no stridor. [] Cardiovascular:Heart rate regular rhythm, no murmur [] Lungs & Thorax: Bilateral breath sounds clear to auscultation [] Abdomen: Bowel sounds normal, soft, no tenderness, no masses, no pulsatile masses. [] Skin: Warm, dry, no erythema, no rash. [] Back: No tenderness, no CVA tenderness. [] Extremities: No tenderness, no cyanosis, no clubbing, ROM intact, no edema. [] Neurologic: Alert and oriented X 3, normal motor function, normal sensory function, no focal deficits noted. [] Psychologic: Affect normal, judgement normal, mood normal. [] Current Patient Data Vital Signs Vital Signs Date Time Temp Pulse Resp B/P (MAP) Pulse Ox O2 Delivery O2 Flow Rate FiO2 03/25/19 16:48 98.9 119 16 148/94 (112) 100 Room Air 98.9 EKG EKG [] Radiology/Procedures Radiology/Procedures [] Course & Med Decision Making Course & Med Decision Making Pertinent Labs and Imaging studies reviewed. (See chart for details) Will give Decadron in ER. Advised to take Mucinex, Zyrtec, and Flonase at home. Dragon Disclaimer Dragon Disclaimer This electronic medical record was generated, in whole or in part, using a voice recognition dictation system. Departure Departure Impression: Primary Impression: Upper respiratory infection, viral Disposition: HOME, SELF-CARE Condition: STABLE Referrals: UNKNOWN PCP NAME (PCP) Patient Instructions: Upper Respiratory Infection, Adult Additional Instructions: Thank you for visiting [facility]. We appreciate you trusting us with your care. If any additional problems come up don't hesitate to return to visit us. Please follow up with your primary care provider so they can plan additional care if needed and know about the problem that you had. If symptoms worsen come back to the Emergency Department. Any concerning symptoms that start such as chest pain, shortness of air, weakness or numbness on one side of the body, running high fevers or any other concerning symptoms return to the ER. Please take Zyrtec, Flonase, and Mucinex per label instructions. RAINER MUNIZ APRN Mar 25, 2019 17:37
== END 2019-03-25 17:54 | disposition home or self-care (01) ==
LOC: ER 16:27
DX: J06.9 Acute upper respiratory infection, unspecified (principal); B97.89 Other viral agents as the cause of diseases classified elsewhere; I10 Essential (primary) hypertension; I25.2 Old myocardial infarction; Z95.5 Presence of coronary angioplasty implant and graft; Z88.8 Allergy status to other drugs, medicaments and biological substances
CPT/HCPCS: 99281

== ENCOUNTER 2019-04-22 10:38 | Emergency (ER) | payer OTHER ==
[~2019-04-22] VITALS: Ht 180.3 cm; Wt 90.7 kg
[~2019-04-22 10:38] MED LIST changes: +OMEP-229 PO; -OMEP20CA10 PO
[2019-04-22 11:40] VITALS: BP 128/90
[2019-04-22] MEDS ORDERED: METH4TAB2 PO (12:02)
--- NOTE | 2019-04-22 12:04 | PHYS DOC ---
Past Medical History Past Medical History: Hypertension, [place] Past Surgical History: Other Additional Past Surgical Histo: CARDIAC STENTS, ESOPHAGUS SURGERY Alcohol Use: Occasionally Drug Use: None Adult General Chief Complaint Chief Complaint: Congestion HPI HPI Patient is a 54 year old male who presents with sinus congestion and sinus pressure with some face pain that started yesterday. Patient states he has recent neck smacks at home but has not taken it. Patient states is only taking Zyrtec. Patient rates his pain 8 out of 10. Patient states he is also needing a work excuse. Review of Systems Review of Systems HENT: nasal congestion or denies sore throat [] Neurologic: headache, denies focal weakness or sensory changes [] All other systems were reviewed and found to be within normal limits, except as documented in this note. Allergies Allergies Allergies Coded Allergies Type Severity Reaction Last Updated Verified pollen extracts Allergy Intermediate SEASONAL ALLERGIES 02/15/19 Yes Physical Exam Physical Exam Constitutional: Well developed, well nourished, no acute distress, non-toxic appearance. [] HENT: Normocephalic, atraumatic, bilateral external ears normal, oropharynx moist, no oral exudates, nose congestion. [] Eyes: PERRLA, EOMI, conjunctiva normal, no discharge. [] Neck: Normal range of motion, no tenderness, supple, no stridor. [] Cardiovascular:Heart rate regular rhythm, no murmur [] Lungs & Thorax: Bilateral breath sounds clear to auscultation [] Abdomen: Bowel sounds normal, soft, no tenderness, no masses, no pulsatile masses. [] Skin: Warm, dry, no erythema, no rash. [] Back: No tenderness, no CVA tenderness. [] Extremities: No tenderness, no cyanosis, no clubbing, ROM intact, no edema. [] Neurologic: Alert and oriented X 3, normal motor function, normal sensory function, no focal deficits noted. [] Psychologic: Affect normal, judgement normal, mood normal. [] Current Patient Data Vital Signs Vital Signs Date Time Temp Pulse Resp B/P (MAP) Pulse Ox O2 Delivery O2 Flow Rate FiO2 04/22/19 11:40 98.7 100 16 128/90 (103) 97 Room Air 98.7 EKG EKG [] Radiology/Procedures Radiology/Procedures [] Course & Med Decision Making Course & Med Decision Making Denies chest pain, shortness of air, nausea, vomiting, diarrhea, fever, throat pain, ear pain, abdominal pain or headache, weakness, body aches, cough. MAxillary Sinus tenderness with palpation. Throat is pink without exudates or swelling. Bilateral tympanic are pearly white. Nasal congestion present. Vital signs within normal limits. Afebrile. And oriented. Speaks in full clear sentences. Ambulatory with a steady gait. Mucous membranes moist. Dragon Disclaimer Dragon Disclaimer This electronic medical record was generated, in whole or in part, using a voice recognition dictation system. Departure Departure Impression: Primary Impression: Nasal congestion Disposition: HOME, SELF-CARE Condition: STABLE Referrals: UNKNOWN PCP NAME (PCP) Patient Instructions: Sinus Headache Additional Instructions: Follow-up with a primary care provider. Take Mucinex max or other mhoe-jth-lwemyic cold medications. Take ibuprofen or Tylenol for ear pain. Scripts Methylprednisolone (MEDROL) 4 Mg Tab.ds.pk 1 PKG PO UD, #1 PKG Prov: STAR SIMONS APRN 04/22/19 STAR SIMONS APRN Apr 22, 2019 12:04
== END 2019-04-22 12:24 | disposition home or self-care (01) ==
LOC: ER 10:38
DX: R09.81 Nasal congestion (principal); R51 Headache; J34.89 Other specified disorders of nose and nasal sinuses; I10 Essential (primary) hypertension; I25.2 Old myocardial infarction; Z95.5 Presence of coronary angioplasty implant and graft; Z88.8 Allergy status to other drugs, medicaments and biological substances
CPT/HCPCS: 99283

== ENCOUNTER 2019-05-01 22:37 | Emergency (ER) | payer OTHER ==
[~2019-05-01] VITALS: Ht 180.3 cm; Wt 90.7 kg
[~2019-05-01 22:37] MED LIST changes: +METH4TAB2 PO
[2019-05-02 00:26] VITALS: BP 134/95
[2019-05-02] MEDS ORDERED: AMOX1TAB61 PO (00:29)
--- NOTE | 2019-05-02 00:29 | PHYS DOC ---
Past Medical History Past Medical History: Hypertension, [place] Past Surgical History: Other Additional Past Surgical Histo: CARDIAC STENTS, ESOPHAGUS SURGERY Alcohol Use: Occasionally Drug Use: None Adult General Chief Complaint Chief Complaint: Congestion HPI HPI Patient is a 54 year old AA alcohol, accompanied by his , who presents to the emergency department with continued nasal congestion, sinus pressure, and headache. Patient also states that he notices blood pressure was elevated at home was reading 150s over 105. Patient denies any difficulty speaking, swallowing, problems with coordination, vision changes, weakness, or difficulty ambulating. He states earlier his left hand felt numb for a short period but denies any hand numbness at this time. He denies any fever, chest pain, palpitations, or shortness of breath. He rates the pain a 10 out of 10 on the pain scale he denies any alleviating factors. All other ROS is neg unless o therwise noted in HPI. Review of Systems Review of Systems See Above Allergies Allergies Allergies Coded Allergies Type Severity Reaction Last Updated Verified pollen extracts Allergy Intermediate SEASONAL ALLERGIES 02/15/19 Yes Physical Exam Physical Exam See Above Constitutional: Well developed, well nourished, no acute distress, non-toxic appearance. [] HENT: Normocephalic, atraumatic, bilateral external ears normal, bilateral TMs normal, cobblestone appearance of posterior pharynx, oropharynx moist, no oral exudates, nasal turbinates are edematous and erythematous bilaterally with th ick, yellow, sinus drainage bilaterally Eyes: PERRLA, EOMI, conjunctiva normal, no discharge. [] Neck: Normal range of motion, no tenderness, supple, no stridor. [] Cardiovascular:Heart rate regular rhythm, no murmur [] Lungs & Thorax: Bilateral breath sounds clear to auscultation [] Skin: Warm, dry, no erythema, no rash. [] Back: No tenderness Extremities: No cyanosis, ROM intact, no edema. [] Neurologic: Alert and oriented X 3, no focal deficits noted. [] Psychologic: Affect normal, judgement normal, mood normal. [] Current Patient Data Vital Signs Vital Signs Date Time Temp Pulse Resp B/P (MAP) Pulse Ox O2 Delivery O2 Flow Rate FiO2 05/02/19 00:26 134/95 (108) 05/01/19 23:09 98.5 115 20 98 Room Air 98.5 EKG EKG [] Radiology/Procedures Radiology/Procedures [] Course & Med Decision Making Course & Med Decision Making Pertinent Labs and Imaging studies reviewed. (See chart for details) [] Lida Disclaimer Lida Disclaimer This electronic medical record was generated, in whole or in part, using a voice recognition dictation system. Departure Departure Impression: Primary Impression: Acute sinusitis Disposition: HOME, SELF-CARE Condition: STABLE Referrals: UNKNOWN PCP NAME (PCP) Patient Instructions: Sinusitis, Tgga-[id number] Additional Instructions: Use your nasal inhaler as demonstrated in the emergency department. Fill prescription(s) and use as directed. Recommend use of a Cool mist humidifier in room at bedtime. Alternate Tylenol or ibuprofen as needed for pain/fever. Increase clear fluids. Avoid airway triggers such as smoke, fragrance, dust, and pollen. Follow-up with your primary care doctor if symptoms persist, return to the ER if symptoms worsen. Scripts Amoxicillin/Potassium Clav (AUGMENTIN 875-125 TABLET) 1 Each Tablet 1 TAB PO BID for 7 Days, #14 TAB 0 Refills Prov: RACHAEL BENÍTEZ APRN 05/02/19 Problem Qualifiers Primary Impression: Acute sinusitis Sinusitis location: maxillary Recurrence: recurrent Qualified Codes: J01.01 - Acute recurrent maxillary sinusitis RACHAEL BENÍTEZ [employer] May 02, 2019 00:29
== END 2019-05-02 00:32 | disposition home or self-care (01) ==
LOC: ER 22:37
DX: J01.01 Acute recurrent maxillary sinusitis (principal); I10 Essential (primary) hypertension; I25.2 Old myocardial infarction; Z95.5 Presence of coronary angioplasty implant and graft; Z88.8 Allergy status to other drugs, medicaments and biological substances
CPT/HCPCS: 99283